=== PATIENT | male | born 1970 | race Two or more races ===

== ENCOUNTER 2021-04-18 14:56 | Inpatient (IN) | payer OTHER ==
[~2021-04-18] VITALS: Ht 167.6 cm; Wt 73.5 kg
[2021-04-18 16:20] LABS: Eosinophils # (auto) 0 10 ^3/uL (0-0.8)
[2021-04-18 16:23] LABS: Basophils # (auto) 0.1 10 ^3/uL (0-0.2); Basophils % (auto) 0.6 % (0.0-2.0); Hematocrit 40.3 % (41.0-53.0); Hemoglobin 13.7 g/dL (13.5-17.5); Lymphocytes # (auto) 0.6 10 ^3/uL (0.4-5.4); Lymphocytes % (auto) 5.1 % (10.0-50.0); Mean Corpuscular Hemoglobin 32.4 pg (28.0-32.0); Mean Corpuscular Hgb Conc. 34.1 g/dL (32.0-36.0); Mean Corpuscular Volume 94.8 fL (80.0-100.0); Monocytes # (auto) 0.4 10 ^3/uL (0-1.3); Monocytes % (auto) 3.8 % (0.0-12.0); Neutrophils # (auto) 10.1 10 ^3/uL (1.6-8.6); Neutrophils % (auto) 90.5 % (37.0-80.0); Nucleated Red Blood Cells % 0.1 %; Red Blood Cells 4.25 10^6/uL (4.5-5.90); White Blood Cell 11.2 10^3/uL (4.4-10.8)
[2021-04-18 16:40] LABS: Albumin 3.8 g/dL (3.4-5.0); Potassium 3.8 mmol/L (3.5-5.1)
[2021-04-18] MEDS ORDERED: ONDANSETRON HCL 4 MG/2 ML VIAL IV ONE (16:45)
[2021-04-18] MEDS ORDERED: SODIUM CHLORIDE 0.9% 500 ML IV ONE (16:45)
[2021-04-18 16:47] LABS: BUN/Creatinine Ratio 11.1; Bilirubin, Total 0.5 mg/dL (0.2-1.0); Total Protein 8.5 g/dL (6.4-8.2)
[2021-04-18] MEDS ORDERED: cefTRIAXone 1GM/50ML D5W 50 ML IV ONE (17:00)
[2021-04-18] MEDS ORDERED: AZITHROMYCIN 500MG/ 250ML 250 ML IV ONE (17:30)
[2021-04-18 17:51] LABS: INR 1.05 (0.9-1.15)
[2021-04-19] MEDS ORDERED: SODIUM CHLORIDE 0.9% 500 ML IV ONE (01:00)
[2021-04-19] MEDS ORDERED: HYDROmorphone HCL 2 MG/ML VL IV ONE (01:00)
[2021-04-19] MEDS ORDERED: ONDANSETRON HCL 4 MG/2 ML VIAL IV ONE (01:00)
[2021-04-19] MEDS ORDERED: MORPHINE SULFATE INJECTION 2 MG/ML SYRG IV PRN ×2 (01:30→14:45)
[2021-04-19] MEDS ORDERED: ONDANSETRON HCL 4 MG/2 ML VIAL IV PRN (01:30)
[2021-04-19] MEDS ORDERED: HYDROcodone-ACET 5/325MG TAB PO PRN (01:30)
[2021-04-19] MEDS ORDERED: NITROGLYCERIN 0.4 MG SL TAB SL PRN (01:30)
[2021-04-19] MEDS ORDERED: ALBUTEROL SULF 2.5 MG/0.5ML(0.5%) NEB SOLN NEB PRN ×2 (01:30→05:15)
[2021-04-19 02:25] VITALS: BP 154/100
[2021-04-19] MEDS ORDERED: HYDROcodone-ACET 10/325MG TAB PO PRN (04:15)
[2021-04-19 05:00] VITALS: BP 150/93
[2021-04-19] MEDS ORDERED: LOSA-69 PO (06:00)
[2021-04-19] MEDS ORDERED: METH4TAB GT (06:00)
[2021-04-19] MEDS ORDERED: ALBUTEROL SULF HFA 90MCG INH 200DOSE IN SCH (06:00)
[2021-04-19] MEDS ORDERED: TRAM-297 PO (06:00)
[2021-04-19 09:00] VITALS: BP 136/82
[2021-04-19] MEDS: cefTRIAXone 1GM/50ML D5W 50 ML IV SCH (09:42)
[2021-04-19] MEDS: AZITHROMYCIN 500MG/ 250ML 250 ML IV SCH (10:14)
[2021-04-19] MEDS: ZINC SULFATE 220mg CAP or TAB PO SCH (10:14)
[2021-04-19] MEDS: CHOLECALCIFEROL (VITD3) 2,000 UNIT CAP/TAB PO SCH (10:15)
[2021-04-19] MEDS: ASCORBIC ACID 500 MG TAB PO SCH ×2 (10:15→21:30)
[2021-04-19] MEDS: LOSARTAN POTASSIUM 50 MG TAB PO SCH (10:15)
[2021-04-19] MEDS: ENOXAPARIN SOD 40 MG/0.4 ML SYRINGE SC SCH (10:16)
[2021-04-19 11:34] LABS: Basophils # (auto) 0.1 10 ^3/uL (0-0.2); Basophils % (auto) 0.5 % (0.0-2.0); Eosinophils # (auto) 0 10 ^3/uL (0-0.8); Eosinophils % (auto) 0.2 % (0.0-7.0); Hematocrit 37.1 % (41.0-53.0); Hemoglobin 12.8 g/dL (13.5-17.5); Lymphocytes # (auto) 1.5 10 ^3/uL (0.4-5.4); Lymphocytes % (auto) 12.3 % (10.0-50.0); Mean Corpuscular Hemoglobin 33.1 pg (28.0-32.0); Mean Corpuscular Hgb Conc. 34.6 g/dL (32.0-36.0); Mean Corpuscular Volume 95.6 fL (80.0-100.0); Monocytes # (auto) 0.8 10 ^3/uL (0-1.3); Monocytes % (auto) 7.1 % (0.0-12.0); Neutrophils # (auto) 9.5 10 ^3/uL (1.6-8.6); Neutrophils % (auto) 79.9 % (37.0-80.0); Red Blood Cells 3.88 10^6/uL (4.5-5.90); Red Cell Distribution Width 13.9 % (11.8-14.3); White Blood Cell 11.9 10^3/uL (4.4-10.8)
[2021-04-19 11:49] LABS: Potassium 3.4 mmol/L (3.5-5.1)
[2021-04-19 11:55] LABS: Albumin 3.3 g/dL (3.4-5.0); BUN/Creatinine Ratio 18.1; Bilirubin, Total 0.4 mg/dL (0.2-1.0); Calcium 9.5 mg/dL (8.5-10.1); Total Protein 7.7 g/dL (6.4-8.2)
[2021-04-19 14:05] VITALS: BP 134/86
[2021-04-19 16:00] VITALS: BP 146/95
[2021-04-19] MEDS: HYDROcodone-ACET 10/325MG TAB PO PRN (18:43)
[2021-04-19 22:00] VITALS: BP 128/83
[2021-04-20] MEDS: HYDROcodone-ACET 10/325MG TAB PO PRN ×2 (03:14→09:41)
[2021-04-20 05:00] VITALS: BP 129/86
[2021-04-20 07:57] LABS: Basophils # (auto) 0.1 10 ^3/uL (0-0.2); Basophils % (auto) 0.7 % (0.0-2.0); Eosinophils # (auto) 0 10 ^3/uL (0-0.8); Eosinophils % (auto) 0.4 % (0.0-7.0); Hematocrit 38.1 % (41.0-53.0); Hemoglobin 13.4 g/dL (13.5-17.5); Lymphocytes # (auto) 1.5 10 ^3/uL (0.4-5.4); Mean Corpuscular Hemoglobin 33.8 pg (28.0-32.0); Mean Corpuscular Hgb Conc. 35.2 g/dL (32.0-36.0); Monocytes # (auto) 0.6 10 ^3/uL (0-1.3); Neutrophils % (auto) 75.9 % (37.0-80.0); Nucleated Red Blood Cells % 0.1 %; Red Blood Cells 3.97 10^6/uL (4.5-5.90); Red Cell Distribution Width 13.8 % (11.8-14.3); White Blood Cell 9.2 10^3/uL (4.4-10.8)
[2021-04-20 08:00] LABS: Potassium 3.4 mmol/L (3.5-5.1)
[2021-04-20 08:05] LABS: BUN/Creatinine Ratio 16.7; Calcium 9.8 mg/dL (8.5-10.1)
[2021-04-20 09:00] VITALS: BP 133/95
[2021-04-20] MEDS: AZITHROMYCIN 500MG/ 250ML 250 ML IV SCH (09:21)
[2021-04-20] MEDS: ZINC SULFATE 220mg CAP or TAB PO SCH (09:21)
[2021-04-20] MEDS: cefTRIAXone 1GM/50ML D5W 50 ML IV SCH (09:21)
[2021-04-20] MEDS: CHOLECALCIFEROL (VITD3) 2,000 UNIT CAP/TAB PO SCH (09:22)
[2021-04-20] MEDS: ASCORBIC ACID 500 MG TAB PO SCH (09:22)
[2021-04-20] MEDS: ENOXAPARIN SOD 40 MG/0.4 ML SYRINGE SC SCH (09:22)
[2021-04-20] MEDS: LOSARTAN POTASSIUM 50 MG TAB PO SCH (09:22)
[2021-04-20 11:07] VITALS: BP 133/95
[2021-04-20 13:01] VITALS: BP 121/78
[2021-04-20] MEDS ORDERED: POTASSIUM CHL 20 Meq TABLET PO ONE (13:15)
[2021-04-20 17:17] VITALS: BP 124/92
== END 2021-04-20 20:32 | disposition home health service (06) | DRG 189 ==
LOC: ER 14:56 → TELE 04-19 01:30 → TELE-WESTW 04-19 02:25 → TELE-EAST 04-19 17:18
PROVIDERS: ADMIT Hospitalist; ATTEND Hospitalist
PROC: 0W9930Z Drainage of Right Pleural Cavity with Drainage Device, Percutaneous Approach (ICD-10-PCS; principal; 2021-04-18)
DX: J96.00 Acute respiratory failure, unspecified whether with hypoxia or hypercapnia (principal); J18.9 Pneumonia, unspecified organism; U07.1 COVID-19; J93.9 Pneumothorax, unspecified; E78.5 Hyperlipidemia, unspecified; I10 Essential (primary) hypertension; M54.9 Dorsalgia, unspecified; U09.9 Post COVID-19 condition, unspecified; Z90.49 Acquired absence of other specified parts of digestive tract
CPT/HCPCS: 32551; 36415; 71045; 71250; 80048; 80053; 84484; 85025; 85610; 87426; 96365; 96367; 96375; 96376; 99291; G0378; J0696; J2405

== ENCOUNTER 2022-11-13 16:46 | Emergency (ER) | payer OTHER ==
[~2022-11-13] VITALS: Ht 170.2 cm; Wt 81.8 kg
[~2022-11-13 16:46] MED LIST: LOSA50TA46 PO; METH4TAB GT; TRAM-297 PO
[2022-11-13] MEDS ORDERED: SODIUM CHLORIDE 0.9% 1,000 ML IV ONE (17:00)
[2022-11-13] MEDS ORDERED: LORazepam 2MG/ML-1ML VIAL IV ONE (17:00)
[2022-11-13 17:21] LABS: Basophils # (auto) 0.1 10 ^3/uL (0-0.2); Basophils % (auto) 1.2 % (0.0-2.0); Eosinophils # (auto) 0.1 10 ^3/uL (0-0.8); Eosinophils % (auto) 1.2 % (0.0-7.0); Hematocrit 40.5 % (41.0-53.0); Hemoglobin 14.2 g/dL (13.5-17.5); Lymphocytes # (auto) 2.4 10 ^3/uL (0.4-5.4); Mean Corpuscular Hemoglobin 34.7 pg (28.0-32.0); Mean Corpuscular Hgb Conc. 35.1 g/dL (32.0-36.0); Mean Corpuscular Volume 98.9 fL (80.0-100.0); Monocytes # (auto) 0.5 10 ^3/uL (0-1.3); Monocytes % (auto) 8.7 % (0.0-12.0); Neutrophils # (auto) 2.9 10 ^3/uL (1.6-8.6); Neutrophils % (auto) 48.9 % (37.0-80.0); Nucleated Red Blood Cells % 0.1 %; Red Cell Distribution Width 14.8 % (11.8-14.3); White Blood Cell 5.9 10^3/uL (4.4-10.8)
[2022-11-13 17:31] VITALS: PULSE 92; RESP 18; O2SAT 98
[2022-11-13] MEDS ORDERED: CHL10C PO (18:48)
[2022-11-13 19:50] VITALS: BP 142/93; PULSE 76; RESP 18; TEMP 98; O2SAT 98
== END 2022-11-13 19:51 | disposition home or self-care (01) ==
LOC: ER 16:46
DX: R00.2 Palpitations (principal); F10.239 Alcohol dependence with withdrawal, unspecified; F41.8 Other specified anxiety disorders; R07.89 Other chest pain; I10 Essential (primary) hypertension; E78.5 Hyperlipidemia, unspecified; Z90.49 Acquired absence of other specified parts of digestive tract; Z79.899 Other long term (current) drug therapy; Y90.0 Blood alcohol level of less than 20 mg/100 ml
CPT/HCPCS: 36415; 71045; 80320; 84484; 85025; 93005; 96361; 96374; 99285; J2060; J7030

== ENCOUNTER 2022-11-23 17:40 | Emergency (ER) | payer OTHER ==
[~2022-11-23] VITALS: Ht 165.1 cm; Wt 73.3 kg
[~2022-11-23 17:40] MED LIST changes: +CHL10C PO
[2022-11-23 18:32] VITALS: BP 148/101; PULSE 108; RESP 18; TEMP 98.3; O2SAT 96
[2022-11-23] MEDS ORDERED: IBUP-1456 PO (19:42)
[2022-11-23] MEDS ORDERED: KETOROLAC TROMETH 60MG/2ML VIAL IM ONE (19:45)
== END 2022-11-23 20:06 | disposition home or self-care (01) ==
LOC: ER 17:40
DX: S20.211A Contusion of right front wall of thorax, initial encounter (principal); E78.5 Hyperlipidemia, unspecified; I10 Essential (primary) hypertension; F12.10 Cannabis abuse, uncomplicated; F10.10 Alcohol abuse, uncomplicated; W18.09XA Striking against other object with subsequent fall, initial encounter; Y93.89 Activity, other specified; Y92.89 Other specified places as the place of occurrence of the external cause; Y99.8 Other external cause status
CPT/HCPCS: 71101; 96372; 99283; J1885